=== PATIENT | female | born 2000 | race Hispanic/Latino ===

== ENCOUNTER 2021-07-04 14:26 | Observation (INO) | payer BC, SELFPAY ==
[2021-07-04] VITALS (15 sets, daily range): BP systolic 106–136; BP diastolic 58–83; PULSE 91–125; RESP 15–26; TEMP 36.6–37.3; O2SAT 98–100; BMI 36.3; BMI 34.8
[2021-07-04 15:11] LABS: Absolute Lymphocyte Count 2.56 X10^3/uL (0.83-4.51); Absolute Neutrophil Count 5.8 X10^3/uL (2.0-7.7); Basophil# 0.03 X10^3/uL; Basophil% 0.3 % (0-1); Eosinophil# 0.05 X10^3/uL; Eosinophils% 0.6 % (0-5); Lymphocyte # 2.56 X10^3/ul (0.83-4.51); Lymphocyte % 28.9 % (19-41); Mean Corp Hgb Conc 27.1 g/dL (32-36); Mean Corpuscular Hgb 17.8 pg (27.0-32.0); Mean Corpuscular Volume 65.4 fL (81-99); Mean Platelet Vol. 8.7 fl (6.2-12.0); Monocyte# 0.43 X10^3/uL; Monocyte% 4.9 % (0-10); NRBC Flagged by Analyzer 0 % (0-5); Neutrophil # 5.76 X10^3/uL (2.7-7.7); POSITIVE COUNT YES; Platelet Count 617 K/mm3 (150-450); RBC Distribution Width SD 45.6 fl (35.1-43.9); Red Blood Count 3.21 M/mm3 (4.2-5.4); White Blood Count 8.9 K/mm3 (4.4-11.0)
[2021-07-04 15:12] LABS: Hemoglobin 5.7 g/dL (12.0-15.0)
[2021-07-04 15:23] LABS: Anion Gap 9 (5-15); BUN 9 mg/dL (7-18); BUN/Creat Ratio 13.7 RATIO (10-20); Calcium,Total 8.6 mg/dL (8.5-10.1); Chloride 109 mmol/L (98-107); Creatinine, Serum 0.66 mg/dL (0.55-1.02); EST Glomerular Filtration Rate 123 mL/min (>60); Est Glom Filt Rate - Afr Amer 148 mL/min (>60); Estimated Creatinine Clearance 176.71 ml/min; Glucose 102 mg/dL (74-106); Internal QC Validated? YES +Cl - CLEAR BKGD; Potassium 3.7 mmol/L (3.5-5.1); Pregnancy, Serum, hCG Quali. NEGATIVE Negative; Sodium Level 140 mmol/L (136-145)
[2021-07-04 15:33] LABS: Differential Comment SCANNED
--- NOTE | 2021-07-04 16:15 | US_ITS ---
EXAM: US PELVIS TRANSVAGINAL CLINICAL INDICATION: pelvic pain and bleeding -- pelvic pain and bleeding pelvic pain and bleeeding -- pelvic pain and bleeding TECHNIQUE: Transvaginal pelvic ultrasound was performed with grayscale and color Doppler imaging. Transvaginal imaging was used for better evaluation of the endometrium and adnexa. This report was created using [employer] report generation technology. COMPARISON: None. FINDINGS: UTERUS/CERVIX: Uterus measures 83 x 44 x 32 mm. Endometrial stripe is 5 mm. Anteverted. There is no uterine mass. RIGHT OVARY: Right ovary measures 22 x 33 x 21 mm. Blood flow is present in the right ovary. LEFT OVARY: Left ovary measures 62 x 66 x 51 mm. Left ovarian cyst measures 60 x 51 mm. This is consistent for simple cysts. No follow-up required. Pression. Blood flow is present in the left ovary. FREE FLUID: None. BLADDER: Urinary bladder volume is 257 cc. US/Pelvic (Non ) IMPRESSION: No acute findings in the pelvis. Electronically Signed: Akshat Kirby MD at 17:25 EDT , Service support ,
--- NOTE | 2021-07-04 16:22 | ED.VIS.GI ---
HPI HPI - GI History of Present Illness Chief Complaint: Abd Pain Informant: patient Abdominal Pain/Flank Pain Onset: Days Context: Gradual Onset Timing: Continuous Quality: Cramping Current Severity: Mild Maximum Severity: Mild Worsened by: Nothing Relieved by: Nothing Nausea/Vomiting/Emesis GI Symptom: Positive for Nausea Onset: Days Severity: Mild Diarrhea/Melena/Hematochezia GI Symptom: Negative for Diarrhea, Melena and Hematochezia Associated Symptoms Associated Symptoms: Negative for Dysuria, Frequency, Hematuria and Urgency LMP: Relates that she normally has heavy periods she has not had a normal period Narrative Narrative: 20-year-old female states she has heavy menstrual periods normally they have been heavier the last several months. She is never been . She denies any discharge or fever. She states she has been feeling lightheaded which she thinks is from all the bleeding. Prior similar symptoms: Yes Recent Illness/Hospitalization: No PFSH PFSH Medical History Eating disorder Medical History no medical history Home Medications NK 07/04/21 [History Last Taken Unknown] Allergy/AdvReac Type Severity Reaction Status Date / Time No Known Allergies Allergy Verified 07/04/21 14:29 Surgical History Hx of tonsillectomy Social History Smoking Status: Never smoker ROS ROS ED ROS Narrative Heavy vaginal bleeding. Review of Systems ROS Unobtainable: Denies due to encephalopathy Constitutional Constitutional ED: Denies chills or fever(s) ENT ENT ED: Denies ear pain Cardiovascular Cardiovascular: Denies chest pain Respiratory/Chest Respiratory/Chest: Denies dyspnea Gastrointestinal Gastrointestinal: Reports abdominal pain and nausea; Denies diarrhea, melena or vomiting Genitourinary Genitourinary ED: Denies dysuria or hematuria Musculoskeletal Musculoskeletal: Denies myalgias Integumentary Denies rash Neurologic Neurologic: Denies headache(s) Psychiatric Psychiatric: Denies depression Endocrine Endocrinology: Denies polyuria Hematologic/Lymphatic Hematologic/Lymphatic: Denies easy bruising Allergic/Immunologic Allergic/Immunologic ED: Denies urticaria EXAM Physical Exam Narrative Exam Narrative: 20-year-old female initial blood pressure 136/83 with a heart rate of 125. She does not look septic or toxic. HEENT exam unremarkable. Moist remembers. Lungs clear to auscultation bilaterally. Heart tachycardic rate about 115 on my exam no murmur. Abdomen soft nondistended normal bowel sounds no peritoneal signs. Mild suprapubic tenderness. Pelvic exam done female nurse present in room. Speculum exam there is blood in the vaginal vault. Currently there is no large amount of bleeding or large clots. On bimanual exam she complains of uterine and bilateral adnexal tenderness. Moving all 4 extremities. No edema. Neurologically awake and alert. Const Vital Signs: 07/04/21 14:27 07/04/21 16:10 07/04/21 17:31 Temperature 97.9 F 98.2 F Temperature Source Temporal Temporal Pulse Rate 125 H 103 H 114 H Respiratory Rate 18 15 21 H Blood Pressure 136/83 H 113/82 H 115/74 Blood Pressure Mean 100 92 87 Blood Pressure Source Monitor Blood Pressure Position Sitting Pulse Ox 100 100 98 Oxygen Delivery Method Room Air Room Air Room Air Positive well nourished and well developed; Negative for obese, cachectic, contractures or unkempt General Appearance ED: well developed and NAD; Negative for unkempt, cachectic, contractures or pallor Nutritional Appearance: Negative for cachectic or obese HEENT Reports moist mucous membranes normocephalic and atraumatic; Negative for trauma or tenderness Eyes PERRL and EOMs intact bilaterally Neck no lymphadenopathy, supple and no JVD General: Negative for tenderness Resp normal respiratory effort and clear to auscultation bilaterally Auscultation: Negative for rales, rhonchi or wheezes Cardio regular rhythm, S1 normal heart sound, S2 normal heart sound and no murmurs Rate: tachycardic GI non-distended and no masses; Negative for non-tender Inspection: Negative for abdominal distention Auscultation: normoactive bowel sounds; Negative for hypoactive bowel sounds Palpation: soft and tender; Negative for guarding, rigid or rebound tenderness present Back/Spine no CVA tenderness General Back: Negative for CVA tenderness Extremity full ROM General Extremety ED: Negative for edema or tenderness General Extremity: Negative for edema Neuro moves all extremities Sensorium / Orientation: alert, oriented to person, oriented to place, oriented to time and orientation impaired; Negative for confused, lethargic or stuporous Motor Exam: strength 5/5 throughout Psych mental status grossly normal and thought process normal Appearance: Negative for unkempt Skin no wounds General Skin Exam: jaundice; Negative for pallor Lesions: no lesions Rashes: no rashes MDM MDM MDM Narrative Medical decision making narrative: 20-year-old female with heavy vaginal bleeding her last several menstrual periods. Screening labs type and screen and type and cross will be obtained. Ultrasound pending. I have already spoken to PHYSICAL SCIENCE TEACHER who will admit the patient to transfuse her and decide if she needs a D&C or not. Due to the patient's hemoglobin of 5.7 she has been typed and crossed for 4 units she will be transfused 2 units. PHYSICAL SCIENCE TEACHER physician Dr. Ragsdale is coming and evaluate the patient. Our plan at this time is transfusion and admission. No emergent surgery at this time. If bleeding worsens then OB can reconsider the plan. Lab Data Attestation: I reviewed the patient's lab results. Lab results narrative: CBC shows white count 8.9 and hemoglobin of 5.7. I suspect this occurred over months. Hematocrit 21. Platelet count 617,000. Electrolytes gap 9 creatinine 0.6. Serum test negative. Pelvic ultrasound was read as no acute findings per the radiologist. Labs: Laboratory Results - last 24 hr 07/04/21 07/04/21 07/04/21 15:00 15:00 15:00 WBC 8.9 RBC 3.21 L Hgb 5.7 L* Hct 21.0 L MCV 65.4 L MCH 17.8 L MCHC 27.1 L RDW Std Deviation 45.6 H RDW Coeff of Kell 20.0 H Plt Count 617 H MPV 8.7 Immature Gran % (Auto) 0.300 Neut % (Auto) 65.0 Lymph % (Auto) 28.9 [place] % (Auto) 4.9 Eos % (Auto) 0.6 Baso % (Auto) 0.3 Absolute Neuts (auto) 5.8 Absolute Lymphs (auto) 2.56 Nucleated RBC % 0 Differential Comment SCANNED Sodium 140 Potassium 3.7 Chloride 109 H Carbon Dioxide 22.0 Anion Gap 9 BUN 9 Creatinine 0.66 Estim Creat Clear Calc 176.71 Est GFR (MDRD) Af Amer 148 Est GFR (MDRD) Non-Af 123 BUN/Creatinine Ratio 13.7 Glucose 102 Calcium 8.6 Serum , Qual NEGATIVE Blood Type Antibody Screen Crossmatch 07/04/21 16:05 WBC RBC Hgb Hct MCV MCH MCHC RDW Std Deviation RDW Coeff of Kell Plt Count MPV Immature Gran % (Auto) Neut % (Auto) Lymph % (Auto) [place] % (Auto) Eos % (Auto) Baso % (Auto) Absolute Neuts (auto) Absolute Lymphs (auto) Nucleated RBC % Differential Comment Sodium Potassium Chloride Carbon Dioxide Anion Gap BUN Creatinine Estim Creat Clear Calc Est GFR (MDRD) Af Amer Est GFR (MDRD) Non-Af BUN/Creatinine Ratio Glucose Calcium Serum , Qual Blood Type O POSITIVE Antibody Screen NEGATIVE Crossmatch See Detail Radiography Diagnostic Testing: Radiology Impression Pelvis Ultrasound 07/04/21 16:15 IMPRESSION: No acute findings in the pelvis. Electronically Signed: Akshat Kirby MD at 17:25 EDT , Service support , Discharge Plan Triage Chief Complaint: Abd Pain ED Provider: Wilfredo Nava Dx/Rx/DC Orders Clinical Impression: Abnormal vaginal bleeding, ABLA (acute blood loss anemia) Prescriptions: No Action NK RF: 0 Primary Care Provider: Care Physician,No Primary Referrals: Care Physician,No Primary [Primary Care Provider] - Disposition Disposition: [facility]
--- NOTE | 2021-07-04 17:30 | CM.ED ---
SW Note Referral Source: softball umpire Reason: Eating disorder in history SW met with patient in her room. Good eye contact and engaged in conversation easily. Patient said that in the past she has been diagnosed with depression and anxiety. Patient said that she has never been on meds with her treatment for anxiety and depression being counseling. Patient denied any current SI/HI. Patient said that she does not feel she is eating normally and that she gets busy and forget to eat and drink. Patient said that she is on the wait list at the [facility] for treatment . Patient reports no past eating disorder treatment and stated she just knows I don't eat normal. Patient said that she went to an psychiatrist once for evaluation for bipolar but I never followed through with it. Patient said that she went to the psychiatrist as a counselor had me do a test. Patient said that she she has a major change she feels her eating issues resurface. Patient said that she is from [place]. 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 Patient has a busy schedule due to working at the [employer] and going to classes. Patient indicated she has a friend and will call the friend for support. SW called [facility]. They have counselor available 30/04. Patient needs to be put on counselor list every new school year. SW spoke to patient an advised her that she needs to be put herself on the counseling list every year. Patient was also given information about 30/04 counseling at the [facility]. Patient was given handout about [facility] IOP/PHP and also list of counseling agencies in [facility]. Patient also was provided with number for crisis and that they are available 30/04. Patient appreciative. Emotional support provided. Plan: Resources and emotional support provided Shantell THOMAS
--- NOTE | 2021-07-04 18:10 | NURSING ---
PCU Roman MILRENETTA VAGINAL BLEEDING, ANEMIA
[2021-07-04] MEDS: Ondansetron 4 MG/2 ML Vial IV (18:16)
[2021-07-04] MEDS: Morphine 4 MG/ML Syringe IV (18:16)
--- NOTE | 2021-07-04 18:39 | PCM.HP.BLA ---
History and Physical Date of Admission: 07/04/21 Chief complaint: Vaginal bleeding History of present illness: 20-year-old G0 arrives with vaginal bleeding since Sunday. Patient has a history of irregular periods. Typically has long heavy periods. This period With increased heaviness. Overall feeling well, some weakness. Denies chest pain shortness of breath, nausea vomiting. Obstetric history: None Past medical history: None Medications: None Past surgical history: Tonsils and adenoids Allergies: No known drug allergies Family history: Denies history DVT or PE Review of systems: Besides above pertinent positives a full review of systems was performed and found to be negative Physical exam: Vital signs: Blood pressure 115/68 pulse 107 respiratory rate 18 temp 99.1 SPO2 100% on room air General: Normal-appearing no acute distress HEENT: Normocephalic atraumatic no cervical of adenopathy Cardiac/respiratory: No use of accessory muscles, nonlabored breathing Abdomen: Soft, nontender, nondistended Extremities: No peripheral edema normal peripheral pulses Psych: Normal affect normal demeanor nonpressured speech Labs: White blood cell count 8.9 hemoglobin 5.7 hematocrit 21% platelets 617. Sodium 140 potassium 3.7 creatinine 0.56. O+ antibody negative Diagnostic imaging: I reviewed pelvic ultrasound with no pathology found Assessment and plan: 20-year-old G0 with menorrhagia. Ultrasound with no pathology. This is all likely secondary to anovulatory cycles, patient with long history of irregular cycles and menorrhagia. Patient likely chronically anemic with periods lasting multiple weeks. Based on patient's overall stability with severe anemia secondary to acute blood loss we will provide supportive care and hold on D&C to treat the anovulation. We will give 2 units packed red blood cells and estrogen 25 mg IV every 6 hours. Educated patient on risks of IV estrogen including VTE, patient with no family history of VTE states understanding.
[2021-07-04] MEDS: Lactated Ringers 1,000 ML 150 ML IV (21:24)
[2021-07-04] MEDS: Estrogens,Conj. 25 MG Vial IV (21:25)
--- NOTE | 2021-07-04 22:43 | PCS.PANDOC ---
PANDEMIC DOCUMENTATION INITIATED: Date: 05/23/2021 Time: 190
[2021-07-05 00:51] VITALS: BP 99/55; PULSE 83; RESP 18; TEMP 36.6; O2SAT 100
[2021-07-05] MEDS: Estrogens,Conj. 25 MG Vial IV ×2 (00:54→10:44)
[2021-07-05] MEDS: 0.9% Saline Lock 10 ML Syringe IV ×2 (00:54→10:44)
[2021-07-05 03:00] VITALS: PULSE 84
[2021-07-05] MEDS: Lactated Ringers 1,000 ML 150 ML IV (04:04)
[2021-07-05 06:39] VITALS: BP 99/62; PULSE 97; RESP 18; TEMP 36.9; O2SAT 100
[2021-07-05] MEDS: Ondansetron 4 MG/2 ML Vial IV (06:41)
[2021-07-05 06:56] VITALS: PULSE 90
--- NOTE | 2021-07-05 08:22 | PN.OBGYN_ITS ---
Subjective Subjective No overnight complaints. Tolerating regular diet. Vaginal bleeding improved. Feels no nausea, no dizziness or weakness Objective Data Objective Data Vital Signs: Vital Signs Temp Pulse Resp BP Pulse Ox 98.4 F 90 18 99/62 100 07/05/21 06:39 07/05/21 06:56 07/05/21 06:39 07/05/21 06:39 07/05/21 06:39 Oxygen Delivery Method Room Air Weight: 172 lb 8 oz Body Mass Index (BMI) 34.8 Intake & Output: Intake and Output for Last 24 Hours 07/03/21 07/04/21 07/05/21 23:59 23:59 23:59 Intake Total 800 / 1080 1900 / 1900 Balance 800 / 1080 1900 / 1900 Lab / Micro Data Result Diagrams: 07/04/21 15:00 07/04/21 15:00 Labs: Laboratory Results - last 24 hr 07/04/21 15:00: WBC 8.9, RBC 3.21 L, Hgb 5.7 L*, Hct 21.0 L, MCV 65.4 L, MCH 17.8 L, MCHC 27.1 L, RDW Std Deviation 45.6 H, RDW Coeff of Kell 20.0 H, Plt Count 617 H, MPV 8.7, Immature Gran % (Auto) 0.300, Neut % (Auto) 65.0, Lymph % (Auto) 28.9, [place] % (Auto) 4.9, Eos % (Auto) 0.6, Baso % (Auto) 0.3, Absolute Neuts (auto) 5.8, Absolute Lymphs (auto) 2.56, Nucleated RBC % 0, Differential Comment SCANNED, Diff Path Review February07/04/21 15:00: Sodium 140, Potassium 3.7, Chloride 109 H, Carbon Dioxide 22.0, Anion Gap 9, BUN 9, Creatinine 0.66, Estim Creat Clear Calc 176.71, Est GFR (MDRD) Af Amer 148, Est GFR (MDRD) Non-Af 123, BUN/Creatinine Ratio 13.7, Glucose 102, Calcium 8.6 07/04/21 15:00: Serum , Qual NEGATIVE 07/04/21 16:05: Blood Type O POSITIVE, Antibody Screen NEGATIVE, Crossmatch See Detail Radiography Diagnostic Testing: Radiology Impression Pelvis Ultrasound 07/04/21 16:15 IMPRESSION: No acute findings in the pelvis. Electronically Signed: Akshat Kirby MD at 17:25 EDT , Service support , Physical Exam Const alert, oriented x3, no apparent distress, average body habitus, healthy appearing and well nourished HEENT normocephalic and moist oral mucous membranes Head and Scalp: atraumatic Face and Sinus: normal facial exam Eyes PERRL Neck full ROM Resp normal respiratory effort, no retractions and no use of accessory muscles GI normal to inspection, nondistended, normoactive bowel sounds Extremity normal to inspection, full ROM and no clubbing, cyanosis or edema Psych mental status grossly normal, affect normal, speech normal and activity/motor behavior normal Assessment & Plan (1) Abnormal vaginal bleeding: PLAN: Hospital day 1 with acute blood loss anemia secondary to vaginal bleeding. Status post 2 unit packed red blood cells. IV estrogen has much improved bleeding. Light amount of bleeding this morning. Will give 1 more dose of IV estrogen. Okay to discharge home today to start OCP and follow-up in office. Educated on abnormal bleeding. Take [id number] iron pill
--- NOTE | 2021-07-05 08:24 | DCINST_ITS ---
Discharge Instructions Diet Discharge Diet: No restrictions Activity Discharge Activity: Return to Normal Activity, May Drive and May Shower May resume sexual activity in: 4-6 weeks Weight Bearing Status: Weight bearing as tolerated Dressing / Incision Call your doctor if your incision/area has: Continuous Slow Oozing and Foul Smelling Discharge Call your doctor if you observe: Fever of 101 or Higher, Shortness of breath and Chest pain Follow Up Care Please Follow Up With: Chauncey Ragsdale MD When: 1 to 2 weeks Test Results: Test results from this visit will be discussed in further detail at your follow-up appointment, if applicable. Discharge Plan Admission Admit Date/Time: 07/04/21 19:10 Primary Reason for Your Visit: vaginal bleeding Attending Provider: Chauncey Ragsdale Primary Care Provider: Care PhysicianMaria A Primary Instructions Forms: Work / School Excuse Additional Instructions / Restrictions: Regular diet. May return to normal activities. Lifting as tolerated. Call if increased vaginal bleeding, fevers 101, chest pain, shortness of breath. Start OCP 07/06/2021. Zofran as needed. Follow-up with [place] [facility] [employer]N OPERATOR in 1 to 2 weeks Discharge Orders/Prescriptions Prescriptions: New norgestimate-ethinyl estradiol [Sprintec (28)] 0.25-35 mg-mcg tablet 1 tab PO DAILY 28 Days Qty: 28 RF: 4 ondansetron HCl [Zofran] 4 mg tablet 4 mg PO Q6H PRN (Reason: nausea and vomiting) 20 Days Qty: 30 RF: 1 Referrals / Follow Up: Care Physician,Maria A Primary [Primary Care Provider] - Disposition Disposition (needs filled in before D/C Order can be placed): Home, Self Care
[2021-07-05 10:56] LABS: Hematocrit 23.3 % (37-47); Hemoglobin 7.2 g/dL (12.0-15.0); Mean Corpuscular Volume 68.5 fL (81-99); White Blood Count 12.1 K/mm3 (4.4-11.0)
[2021-07-05 10:57] LABS: Absolute Lymphocyte Count 4.16 X10^3/uL (0.83-4.51); Absolute Neutrophil Count 6.9 X10^3/uL (2.0-7.7); Basophil% 0.7 % (0-1); Differential Indicated SCAN CRITERIA MET; Eosinophils% 0.4 % (0-5); Lymphocyte # 4.16 X10^3/ul (0.83-4.51); Lymphocyte % 34.3 % (19-41); Mean Corp Hgb Conc 30.9 g/dL (32-36); Mean Corpuscular Hgb 21.2 pg (27.0-32.0); Mean Platelet Vol. 9.1 fl (6.2-12.0); Monocyte% 7.2 % (0-10); Neutrophil # 6.94 X10^3/uL (2.7-7.7); Neutrophil % 57.2 % (47-70); POSITIVE MORPHOLOGY YES; Platelet Count 507 K/mm3 (150-450); RBC Distribution Width CV 22.2 % (11.6-14.6); RBC Distribution Width SD 53.9 fl (35.1-43.9)
[2021-07-05 10:58] LABS: Anisocytosis 2+; Differential Comment SCANNED; Hypochromasia 1+; Microcytosis 2+; NRBC Flagged by Analyzer 0 % (0-5)
--- NOTE | 2021-07-05 11:07 | PHA.DC.MC ---
Pharmacy Service has performed discharge medication reconciliation and counseling for this patient. 1. SPRINTEC 28 DAY 1T PO DAILY 2. ONDANSETRON 4MG PO Q6H PRN NAUSEA/VOMITING The patient's discharge medication list was reviewed for discrepancies and discrepancies were resolved. Home Medications norgestimate-ethinyl estradiol [Sprintec (28)] 1 tab PO DAILY 28 Days #28 tab 07/05/21 ondansetron HCl [Zofran] 4 mg PO Q6H PRN 20 Days #30 tab 07/05/21 The patient was counseled on the following discharge medications and changes in medications for homegoing were reviewed. The Reason for Use, instructions for use, and potential side effects were reviewed for all new medications. The patient's questions regarding all of their medications were answered. The patient was able to verbally demonstrate an understanding of their discharge medications.
[2021-07-05 11:32] VITALS: BP 109/64; PULSE 96; RESP 16; TEMP 36.7; O2SAT 100
[2021-07-05 13:29] LABS: Pathologist Review Reviewed
== END 2021-07-05 08:21 | disposition home or self-care (01) ==
LOC: ED 18:06 → PCU 19:44
PROVIDERS: Admitting Provider Obstetrics & Gynecology; Emergency Provider Emergency Medicine; Visit Provider Obstetrics & Gynecology
DX: N92.1 Excessive and frequent menstruation with irregular cycle (principal); D62 Acute posthemorrhagic anemia; Z23 Encounter for immunization
CPT/HCPCS: 36430; 76856; 80048; 84703; 85025; 86850; 86900; 86901; 86920; 86922; 96361; 96374; 96375; 96376; 99218; 99284; J7040; J7050; J7120; P9016; 90686; A4216; G0378; J1410; J2405

== ENCOUNTER 2021-07-07 18:35 | Emergency (ER) | payer BC, SELFPAY ==
[2021-07-07 18:36] VITALS: BP 131/73; PULSE 104; RESP 16; TEMP 36.2; O2SAT 100; BMI 35.6
--- NOTE | 2021-07-07 19:18 | EKG12_ITS ---
Test Reason : DIZZINESS Blood Pressure : / mmHG Vent. Rate : 094 BPM Atrial Rate : 094 BPM P-R Int : 120 ms QRS Dur : 078 ms QT Int : 342 ms P-R-T Axes : 016 029 015 degrees QTc Int : 427 ms Normal sinus rhythm Normal ECG Confirmed by ERA DUMONT, LEVI ([id number]), senior editor EDMOND CHEW ([id number]) on 07/11/2021 8:01:36 AM Referred By: VINCENZO Confirmed By:LEVI GIRARD MD
--- NOTE | 2021-07-07 19:19 | EDS_ITS ---
HPI History of Present Illness Chief Complaint: Dizziness Informant: patient Narrative Narrative: 20-year-old female presents the emergency room with sudden onset of dizziness. Patient states on Sunday she was admitted to the hospital for blood transfusion due to menorrhagia. She states she was released the next day. States that since that time she has felt nauseous but has been feeling okay. She was walking through [place] was nauseous got lightheaded felt clammy and like she may pass out. She did a virtual visit was recommended she come to emergency for evaluation. [facility] Medical History Eating disorder Home Medications norgestimate-ethinyl estradiol [Sprintec (28)] 1 tab PO DAILY 28 Days #28 tab 07/05/21 [Rx Last Taken Unknown] ondansetron HCl [Zofran] 4 mg PO Q6H PRN 20 Days #30 tab 07/05/21 [Rx Last Taken Unknown] Allergy/AdvReac Type Severity Reaction Status Date / Time No Known Allergies Allergy Verified 07/07/21 18:38 Surgical History Hx of tonsillectomy Social History (Updated 07/07/21 @ 19:[address] Jay Jay Daniels DO) Smoking Status: Never smoker substance use type: does not use ROS ROS ED ROS Narrative Dizziness Constitutional Constitutional ED: Denies chills or weight loss Eyes Eyes: Denies change in vision or diplopia ENT ENT ED: Denies ear pain, rhinorrhea or sore throat Cardiovascular Cardiovascular: Denies chest pain, orthopnea, palpitations or racing heartbeat Respiratory/Chest Respiratory/Chest: Denies cough, dyspnea or orthopnea Gastrointestinal Gastrointestinal: Reports nausea; Denies abdominal pain, diarrhea or vomiting Genitourinary Genitourinary ED: Denies dysuria, hematuria or urinary frequency Musculoskeletal Musculoskeletal: Denies arthralgias or myalgias Integumentary Denies abscess or rash Neurologic Neurologic: Denies headache(s) or weakness Psychiatric Psychiatric: Denies anxiety, depression, suicidal ideation or suicidal thoughts Endocrine Endocrinology: Denies polydipsia, polyphagia or polyuria Allergic/Immunologic Allergic/Immunologic ED: Denies mouth swelling, tongue swelling or urticaria EXAM Physical Exam Const Vital Signs: 07/07/21 18:36 07/07/21 19:45 07/07/21 19:46 Temperature 97.1 F L Temperature Source Temporal Pulse Rate 104 H Pulse Rate [Lying] 97 Pulse Rate [Sitting] 99 Pulse Rate [Standing] 98 Respiratory Rate 16 Respiratory Effort Normal Non-Labored Respiratory Pattern Normal Blood Pressure 131/73 H Blood Pressure [Lying] 113/61 Blood Pressure [Sitting] 113/73 Blood Pressure [Standing] 114/69 Blood Pressure Mean 92 Blood Pressure Mean [Lying] 78 Blood Pressure Mean [Sitting] 86 Blood Pressure Mean [Standing] 84 Pulse Ox 100 Oxygen Delivery Method Room Air Positive well nourished and well developed General Appearance ED: well developed HEENT Reports normocephalic, head/scalp atraumatic and moist mucous membranes Eyes PERRL and EOMs intact bilaterally Neck no lymphadenopathy, supple and no JVD Resp normal respiratory effort and clear to auscultation bilaterally Cardio regular rate, regular rhythm and no murmurs GI normal to inspection, nondistended, normoactive bowel sounds and non-tender Palpation: soft Back/Spine no CVA tenderness and normal ROM Extremity normal to inspection General Extremety ED: Negative for edema General Extremity: Negative for edema Neuro oriented x3 and CN's II-XII intact bilaterally Sensorium / Orientation: alert Motor Exam: strength 5/5 throughout Psych mental status grossly normal Mood & Affect: Negative for depressed or tearful Skin no rashes or lesions noted and no wounds MDM MDM MDM Narrative Medical decision making narrative: Patient's hemoglobin is 8.3 which is higher than it was when she was discharged. BMP negative. Patient is not orthostatic. She will be discharged home return if worsening or concerns follow-up in the office as scheduled Lab Data Attestation: I reviewed the patient's lab results. Labs: Laboratory Results - last 24 hr 07/07/21 07/07/21 19:27 19:27 WBC 12.4 H RBC 4.11 L Hgb 8.3 L Hct 28.5 L MCV 69.3 L MCH 20.2 L MCHC 29.1 L D RDW Std Deviation 56.7 H RDW Coeff of Kell 23.6 H Plt Count 648 H MPV 9.1 Immature Gran % (Auto) 0.700 Neut % (Auto) 78.4 H Lymph % (Auto) 16.2 L Sumner % (Auto) 4.3 Eos % (Auto) 0.2 Baso % (Auto) 0.2 Absolute Neuts (auto) 9.7 H Absolute Lymphs (auto) 2.00 Nucleated RBC % 0 Differential Comment SCANNED Hypochromasia 1+ Anisocytosis 1+ Target Cells RARE Ovalocytes RARE Sodium 137 Potassium 3.6 Chloride 105 Carbon Dioxide 25.0 Anion Gap 7 BUN 9 Creatinine 0.85 Estim Creat Clear Calc 134.44 Est GFR (MDRD) Af Amer 111 Est GFR (MDRD) Non-Af 91 BUN/Creatinine Ratio 10.6 Glucose 115 H Calcium 8.7 EKG Initial EKG: Attestation: I personally reviewed and interpreted this EKG as follows: Interpretation: Sinus Rhythm Comments: Normal sinus rhythm with a ventricular rate of 94 bpm. Discharge Plan Triage Chief Complaint: Dizziness ED Provider: Jay Jay Daniels Dx/Rx/DC Orders Clinical Impression: Anemia, Episodic lightheadedness Instructions: ED Near-Fainting, Uncertain Cause Prescriptions: No Action norgestimate-ethinyl estradiol [Sprintec (28)] 0.25-35 mg-mcg tablet 1 tab PO DAILY 28 Days Qty: 28 RF: 4 ondansetron HCl [Zofran] 4 mg tablet 4 mg PO Q6H PRN (Reason: nausea and vomiting) 20 Days Qty: 30 RF: 1 Primary Care Provider: Care Physician,No Primary Referrals: Chauncey Ragsdale MD [STAFF PHYSICIAN] - Keep Katia appointment Care Physician,No Primary [Primary Care Provider] - Disposition Disposition: Home, Self Care
[2021-07-07 19:43] LABS: Absolute Neutrophil Count 9.7 X10^3/uL (2.0-7.7); Basophil# 0.03 X10^3/uL; Basophil% 0.2 % (0-1); Eosinophil# 0.03 X10^3/uL; Eosinophils% 0.2 % (0-5); Hematocrit 28.5 % (37-47); Hemoglobin 8.3 g/dL (12.0-15.0); Lymphocyte % 16.2 % (19-41); Mean Corp Hgb Conc 29.1 g/dL (32-36); Mean Corpuscular Hgb 20.2 pg (27.0-32.0); Mean Corpuscular Volume 69.3 fL (81-99); Mean Platelet Vol. 9.1 fl (6.2-12.0); Monocyte# 0.53 X10^3/uL; Monocyte% 4.3 % (0-10); NRBC Flagged by Analyzer 0 % (0-5); Neutrophil % 78.4 % (47-70); POSITIVE MORPHOLOGY YES; Platelet Count 648 K/mm3 (150-450); RBC Distribution Width CV 23.6 % (11.6-14.6); RBC Distribution Width SD 56.7 fl (35.1-43.9); Red Blood Count 4.11 M/mm3 (4.2-5.4); White Blood Count 12.4 K/mm3 (4.4-11.0)
[2021-07-07 19:45] VITALS: BP 113/61; BP 113/73; BP 114/69; PULSE 97; PULSE 98; PULSE 99
[2021-07-07 19:50] LABS: Differential Indicated SCAN CRITERIA MET
[2021-07-07 20:02] LABS: Anion Gap 7 (5-15); BUN 9 mg/dL (7-18); BUN/Creat Ratio 10.6 RATIO (10-20); Calcium,Total 8.7 mg/dL (8.5-10.1); Chloride 105 mmol/L (98-107); Creatinine, Serum 0.85 mg/dL (0.55-1.02); EST Glomerular Filtration Rate 91 mL/min (>60); Est Glom Filt Rate - Afr Amer 111 mL/min (>60); Estimated Creatinine Clearance 134.44 ml/min; Glucose 115 mg/dL (74-106); Potassium 3.6 mmol/L (3.5-5.1); Sodium Level 137 mmol/L (136-145)
[2021-07-07 20:17] LABS: Anisocytosis 1+; Differential Comment SCANNED; Hypochromasia 1+; Ovalocyte RARE; Target Cells RARE
[2021-07-07 20:44] VITALS: BP 110/74; PULSE 93; RESP 16; O2SAT 98
== END 2021-07-07 20:46 | disposition home or self-care (01) ==
PROVIDERS: Emergency Provider Emergency Medicine
DX: D64.9 Anemia, unspecified (principal); R42 Dizziness and giddiness
CPT/HCPCS: 80048; 85025; 93005; 99285